=== PATIENT | male | born 1970 | race Two or more races ===

== ENCOUNTER 2017-04-26 12:58 | Emergency (ER) | payer OTHER ==
[~2017-04-26] VITALS: Ht 177.8 cm; Wt 90.7 kg
[2017-04-26 13:09] VITALS: BP 130/80
== END 2017-04-26 13:25 | disposition home or self-care (01) ==
LOC: ER 13:01
DX: S01.01XD Laceration without foreign body of scalp, subsequent encounter (principal)
CPT/HCPCS: A4606; Z7502; Z7610